=== PATIENT | male | born 1980 | race Caucasian/White ===

== ENCOUNTER 2025-04-05 09:08 | Emergency (ER) | payer MEDICAID, SELFPAY ==
[2025-04-05] VITALS (10 sets, daily range): BP systolic 127–174; BP diastolic 69–96; PULSE 76–115; RESP 14–23; TEMP 36.4; O2SAT 97–99; BMI 23.7
--- NOTE | 2025-04-05 09:22 | DI.CT.S_ITS ---
PROCEDURE: CT ANGIO HEAD AND NECK INDICATIONS: r/o stroke TECHNIQUE: After the administration of intravenous contrast, 1 mm thick sections acquired from the aortic arch through the [place]. 3-dimensional ihgtbhp-nfzfoczis-vyxmiovcnf (MIP) and/or volume rendering reformats were acquired of the central intracranial vasculature and neck separately. For radiation dose reduction, the following was used: automated exposure control, adjustment of mA and/or kV according to patient size. COMPARISON: [facility], CT, CT STROKE, 04/05/2025, 9:26. FINDINGS: Image quality: Diagnostic. Cerebral CT Angiogram: Internal carotid arteries: No acute findings. Intracranial ICA are patent with no significant stenosis. No occlusion. No aneurysm. Anterior cerebral arteries: Unremarkable. No significant stenosis. No occlusion. No aneurysm. Middle cerebral arteries: Unremarkable. No significant stenosis. No occlusion. No aneurysm. Posterior cerebral arteries: Unremarkable. No significant stenosis. No occlusion. No aneurysm. Basilar artery: Unremarkable. No significant stenosis. No occlusion. No aneurysm. Vertebral arteries: Unremarkable as visualized. Dural venous sinuses: Unremarkable given phase of enhancement. Other: Arterial phase appearance of the brain parenchyma is unremarkable. However, CT head without contrast raises the question of subtle hypodensity in the left anterior joanna. Neck CT Angiogram: Internal carotid arteries: Unremarkable. No significant stenosis. No dissection or occlusion. Common carotid arteries: Unremarkable. No significant stenosis. No dissection or occlusion. External carotid arteries: Unremarkable. No occlusion. Vertebral arteries: Unremarkable. No significant stenosis. No dissection or occlusion. Aortic Arch and Mediastinum: Partially visualized aortic arch unremarkable without evidence of aneurysm. Origins of the great vessels unremarkable. Other: Arterial phase soft tissues of the neck and chest are unremarkable. IMPRESSION: No significant intracranial arterial abnormality is seen. No significant abnormality is seen within the arteries of the neck. Associated head CT suggests possible subtle low-density in the left anterior joanna. Recommend brain MRI to exclude acute infarct. Any quantitative measurements of stenosis were performed using NASCET criteria. Dictated by: Gerber Horton M.D. on 04/05/2025 at 9:54 Approved by: Gerber Horton M.D. on 04/05/2025 at 9:57
--- NOTE | 2025-04-05 09:22 | DI.CT.S_ITS ---
PROCEDURE: CT STROKE INDICATIONS: Positive BE-FAST, Stroke symptoms TECHNIQUE: Noncontrast 4.5 mm thick angled axial sections acquired from the foramen magnum to the vertex, with coronal reformats. For radiation dose reduction, the following was used: automated exposure control, adjustment of mA and/or kV according to patient size. COMPARISON: None. FINDINGS: Image quality: Diagnostic. CSF spaces: Basal cisterns are patent. No extra-axial fluid collections. The ventricles are symmetric in size and shape. Brain: No intracranial bleeds or mass effect. There is question of subtle focal low-density in the left anterior joanna. Reference axial image 10 of series 4. There is intracranial internal carotid artery atherosclerosis. Skull and face: Calvarium and visualized facial bones appear intact, without suspicious lesions. Sinuses: Visualized sinuses and mastoids are clear. IMPRESSION: Question subtle focal low density in the left anterior joanna. Cannot exclude early infarct. Recommend brain MRI. Comment: Findings were discussed with Dr. Concepcion on 04/05/2025 at 0942 hours This study fulfills neurological imaging criteria for inclusion or exclusion of acute stroke therapies based on available published neurological guidelines. Dictated by: Gerber Horton M.D. on 04/05/2025 at 9:41 Approved by: Gerber Horton M.D. on 04/05/2025 at 9:45
--- NOTE | 2025-04-05 09:22 | DI.RAD.S_ITS ---
PROCEDURE: XR CHEST 1V INDICATIONS: Possible stroke TECHNIQUE: One view of the chest was acquired. COMPARISON: None. FINDINGS: Surgical changes and devices: None. Lungs and pleura: Lungs are clear. No pleural effusions or pneumothorax. Mediastinum: Mediastinal contours appear normal. Heart size is normal. Bones and chest wall: No suspicious bony lesions. Overlying soft tissues appear unremarkable. IMPRESSION: No acute cardiopulmonary pathology. Dictated by: Michelet Allen M.D. on 04/05/2025 at 10:16 Approved by: Michelet Allen M.D. on 04/05/2025 at 10:18
--- NOTE | 2025-04-05 09:25 | ED_ITS ---
HPI - Altered Mental Status General Chief Complaint: Neuro Symptoms/Deficit Stated Complaint: had a seizure Time Seen by Provider: 04/05/25 09:16 History of Present Illness HPI narrative: 44-year-old brought in by neighbor at 9:00 a.m. for confusion, slurred speech, left arm and leg extended and contracted for approx 3 mins this lasted per friend who was in the car with him. He has no recollection of this happening and does not know why he is here at this time. He is only complaining of mid back pain but otherwise no other complaints head to toe. He denies headache, dizziness, chest pain, shortness of breath, cough, fever, chills, body aches, rash, stiff neck, nausea, vomiting, diarrhea, abdominal pain. Other than what is stated 14 point review of system is negative. Related Data Allergies Allergy/AdvReac Type Severity Reaction Status Date / Time No Known Allergies Allergy Mild Verified 04/05/25 09:23 Review of Systems Review of Systems ROS Unobtainable: All systems reviewed & are unremarkable except as noted in HPI and below Exam Narrative Exam Narrative: GENERAL: [44] year old patient appears stated age. Well-developed patient, in mild distress. HEAD: Atraumatic. Normocephalic. EYES: Pupils equal round and reactive. Extraocular motions intact. No scleral icterus. No injection or drainage. ENT: Nose without bleeding, purulent drainage. Throat without erythema, tonsillar hypertrophy or exudate. Airway patent. NECK: Trachea midline. Non tender CARDIOVASCULAR: Regular rate and rhythm without murmurs, gallops, or rubs. RESPIRATORY: Clear to auscultation. Breath sounds equal bilaterally. No wheezes, rales, or rhonchi. GASTROINTESTINAL: Abdomen soft, non-tender, nondistended. EXTREMITIES: No edema or joint tenderness. BACK: Nontender without deformity or crepitance. No flank tenderness. NEURO: AOx3. GCS 15 nonfocal neuro exam and oriented x4 SKIN: No rash or erythema of visible areas Initial Vital Signs Initial Vital Signs: Vital Signs Temperature 97.6 F 04/05/25 09:15 Pulse Rate 115 H 04/05/25 09:15 Respiratory Rate 20 04/05/25 09:15 Blood Pressure 174/96 H 04/05/25 09:15 Pulse Oximetry 98 04/05/25 09:15 Oxygen Delivery Method Room Air 04/05/25 09:15 Scores GCS Y[place]esh coma scale eye opening: Spontaneous [place] coma scale verbal response: Orientated [place] coma scale motor response: Obey commands [place] coma scale total score: 15 NIH Stroke Scale Level of Conciousness: Alert, keenly responsive Ask month/age: Answers both questions correctly. Open/close eyes, close hand: Performs both tasks correctly Best gaze horizontal: Normal Visual goodwin: No visual loss Facial palsy: Normal symetrical movement Left arm drift: No drift for full 10 sec Right arm drift: No drift for full 10 sec Left leg drift: No drift for full 5 sec Right leg drift: No drift for full 5 sec Limb ataxia: Absent Sensory on face/arms/legs: Normal, no sensory loss Best language: No aphasia, normal Dysarthria: Normal Extinction or inattention: No abnormality Total NIH Stroke scale score: 0 Course Orders Ordered: ED Orders 04/05/25 09:[address] angio head and neck Stat XR chest 1V Stat EKG-12 Lead Stat 04/05/25 09:23 Complete Blood Count AUTO DIFF Stat Comprehensive Metabolic Panel Stat PTT Partial Thromboplastin Efren Stat Prothrombin Time INR Stat Troponin & CK Cardiac Panel Stat 04/05/25 10:01 MR head/brain wo con Stat 04/05/25 10:08 Urinalysis and Microscopic Stat Urine Drug Screen, Rapid Stat Ondansetron HCl (Ondansetron 4 Mg/2 Ml Inj) 4 mg IV NOW PRN PRN Reason: Nausea And Vomiting Ondansetron HCl (Ondansetron 4 Mg Odt) 4 mg PO NOW PRN PRN Reason: Nausea And Vomiting Discontinued Medications Aspirin (Aspirin 81 Mg Chew Tab) 324 mg PO NOW ONE Stop: 04/05/25 12:15 Vital Signs Vital signs: Vital Signs - 8 hr 04/05/25 09:15 04/05/25 09:39 04/05/25 10:00 Temperature 97.6 F Pulse Rate 115 H 96 H 88 Respiratory Rate 20 22 21 Blood Pressure 174/96 H Pulse Oximetry 98 Oxygen Delivery Method Room Air 04/05/25 11:08 04/05/25 11:10 04/05/25 11:10 Temperature Pulse Rate 76 77 Respiratory Rate 14 Blood Pressure 144/80 H Pulse Oximetry 98 99 Oxygen Delivery Method 04/05/25 11:12 04/05/25 11:12 04/05/25 11:30 Temperature Pulse Rate 82 Respiratory Rate 21 Blood Pressure 148/88 H 142/78 H Pulse Oximetry 99 Oxygen Delivery Method MDM - Altered Mental Status Lab Data 04/05/25 09:23 04/05/25 09:23 Labs: Lab Results 04/05/25 04/05/25 04/05/25 Range/Units 09:21 09:23 10:08 WBC 7.3 (4.5-11.0) X10^3/uL RBC 4.78 (4.5-5.9) X10^6/uL Hgb 14.4 (13.5-17.5) g/dL Hct 44.3 (41-53) % MCV 92.6 (80-100) fL MCH 30.1 (26-34) PG MCHC 32.5 (30-36) % RDW 14.0 (11.6-14.8) % Plt Count 228 (150-400) X10^3/uL Neut % (Auto) 69.1 (50-75) % Lymph % (Auto) 20.6 L (25-40) % [place] % (Auto) 8.6 (3-14) % Eos % (Auto) 1.0 L (2-4) % Baso % (Auto) 0.7 (0-2) % Neut # (Auto) 5000 (1262-8033) /uL Lymph # (Auto) 1500 (0047-0572) /uL [place] # (Auto) 600 (0-900) /uL Eos # (Auto) 100 (0-450) /uL Baso # (Auto) 0 (0-100) /uL PT 10.3 (9.4-12.5) SECONDS INR 0.9 (0.9-1.3) APTT 26 (25.1-36.5) SECONDS Sodium 134 L (137-145) mmol/L Potassium 3.5 (3.4-5.1) mmol/L Chloride 99 (98-107) mmol/L Carbon Dioxide 11 L (22-32) mmol/L BUN 8 L (9-20) mg/dL Creatinine 0.81 (0.66-1.25) mg/dL Estimated GFR > 60 (>60) mL/min BUN/Creatinine Ratio 9.9 (6-22) Glucose 208 H (70-99) mg/dL POC Whole Bld Glucose 214 H (70-99) mg/dL Calcium 9.1 (8.4-10.2) mg/dL Total Bilirubin 0.9 (0.2-1.3) mg/dL AST 217 H (17-59) IU/L ALT 115 H (<50) IU/L Alkaline Phosphatase 84 (38-126) U/L Total Creatine Kinase 89 (55-170) U/L Troponin I < 0.012 (0.01-0.034) ng/mL Total Protein 7.8 (6.3-8.2) g/dL Albumin 4.8 (3.5-5.0) g/dL Globulin 3.0 (1.7-4.1) g/dL Albumin/Globulin Ratio 1.6 (1.0-2.8) Urine Color Yellow Urine Appearance Clear Urine pH 6.0 (4.5-8.0) Ur Specific [place] 1.020 (1.000-1.035) Urine Protein 1+ H (Negative) Urine Glucose (UA) 1+ H (Negative) g/dL Urine Ketones 3+ H (NEGATIVE) Urine Occult Blood 1+ H (Negative) Urine Nitrate Negative (Negative) Urine Bilirubin Negative (NEGATIVE) Urine Urobilinogen 0.2 (0.2) E.U./dL Ur Leukocyte Esterase Negative (NEGATIVE) Urine RBC None seen (0-5/HPF) Urine WBC None seen (0-5/HPF) Ur Squamous Epith Cells None seen (0-5/HPF) Urine Bacteria None seen (None) Ur Culture Indicated? Cult not indicated Vol Urine Centrifuged 10ml (spun) U Opiates 300ng/mL cut Negative (Negative) Ur Oxycodone Screen Negative (Negative) Urine Methadone Screen Negative (Negative) Ur Barbiturates Screen Negative (Negative) U Tricyclic Antidepress Negative (Negative) Ur Phencyclidine Scrn Negative (Negative) Ur Amphetamines Screen Negative (Negative) U Methamphetamines Scrn Negative (Negative) Ur MDMA Scrn (Ecstasy) Negative (Negative) U Benzodiazepines Scrn Negative (Negative) Urine Cocaine Screen Negative (Negative) U Marijuana (THC) Screen Positive H (Negative) Urine Specific [place] Ur Creatinine 25 Range/Units 10:08 WBC (4.5-11.0) X10^3/uL RBC (4.5-5.9) X10^6/uL Hgb (13.5-17.5) g/dL Hct (41-53) % MCV (80-100) fL MCH (26-34) PG MCHC (30-36) % RDW (11.6-14.8) % Plt Count (150-400) X10^3/uL Neut % (Auto) (50-75) % Lymph % (Auto) (25-40) % [place] % (Auto) (3-14) % Eos % (Auto) (2-4) % Baso % (Auto) (0-2) % Neut # (Auto) (1308-3963) /uL Lymph # (Auto) (0064-0612) /uL [place] # (Auto) (0-900) /uL Eos # (Auto) (0-450) /uL Baso # (Auto) (0-100) /uL PT (9.4-12.5) SECONDS INR (0.9-1.3) APTT (25.1-36.5) SECONDS Sodium (137-145) mmol/L Potassium (3.4-5.1) mmol/L Chloride (98-107) mmol/L Carbon Dioxide (22-32) mmol/L BUN (9-20) mg/dL Creatinine (0.66-1.25) mg/dL Estimated GFR (>60) mL/min BUN/Creatinine Ratio (6-22) Glucose (70-99) mg/dL POC Whole Bld Glucose (70-99) mg/dL Calcium (8.4-10.2) mg/dL Total Bilirubin (0.2-1.3) mg/dL AST (17-59) IU/L ALT (<50) IU/L Alkaline Phosphatase (38-126) U/L Total Creatine Kinase (55-170) U/L Troponin I (0.01-0.034) ng/mL Total Protein (6.3-8.2) g/dL Albumin (3.5-5.0) g/dL Globulin (1.7-4.1) g/dL Albumin/Globulin Ratio (1.0-2.8) Urine Color Urine Appearance Urine pH Not Reportable (4.5-8.0) Ur Specific [place] (1.000-1.035) Urine Protein (Negative) Urine Glucose (UA) (Negative) g/dL Urine Ketones (NEGATIVE) Urine Occult Blood (Negative) Urine Nitrate (Negative) Urine Bilirubin (NEGATIVE) Urine Urobilinogen (0.2) E.U./dL Ur Leukocyte Esterase (NEGATIVE) Urine RBC (0-5/HPF) Urine WBC (0-5/HPF) Ur Squamous Epith Cells (0-5/HPF) Urine Bacteria (None) Ur Culture Indicated? Vol Urine Centrifuged U Opiates 300ng/mL cut (Negative) Ur Oxycodone Screen (Negative) Urine Methadone Screen (Negative) Ur Barbiturates Screen (Negative) U Tricyclic Antidepress (Negative) Ur Phencyclidine Scrn (Negative) Ur Amphetamines Screen (Negative) U Methamphetamines Scrn (Negative) Ur MDMA Scrn (Ecstasy) (Negative) U Benzodiazepines Scrn (Negative) Urine Cocaine Screen (Negative) U Marijuana (THC) Screen (Negative) Urine Specific [place] Not Reportable Ur Creatinine Not Reportable Point of Care Testing Glucose POC [address] scan - head: Radiologist's Impression: [address] [address] [address] Scan Report Signed Patient: Denilson Ko MR#: [id number] : 1980 Acct:[id number] Age/Sex: 44 / M Date of Service: 04/05/25 Loc: ED Accession Number: [id number] Procedure: CT angio head and neck Ordering Provider: Bernabe Concepcion D.O. PROCEDURE: CT ANGIO HEAD AND NECK INDICATIONS: r/o stroke TECHNIQUE: After the administration of intravenous contrast, 1 mm thick sections acquired from the aortic arch through the [place] of [place]. 3-dimensional baifeyp-bybfgjxay-czdnlbfmdk (MIP) and/or volume rendering reformats were acquired of the central intracranial vasculature and neck separately. For radiation dose reduction, the following was used: automated exposure control, adjustment of mA and/or kV according to patient size. COMPARISON: [facility], CT, CT STROKE, 04/05/2025, 9:26. FINDINGS: Image quality: Diagnostic. Cerebral CT Angiogram: Internal carotid arteries: No acute findings. Intracranial ICA are patent with no significant stenosis. No occlusion. No aneurysm. Anterior cerebral arteries: Unremarkable. No significant stenosis. No occlusion. No aneurysm. Middle cerebral arteries: Unremarkable. No significant stenosis. No occlusion. No aneurysm. Posterior cerebral arteries: Unremarkable. No significant stenosis. No occlusion. No aneurysm. Basilar artery: Unremarkable. No significant stenosis. No occlusion. No aneurysm. Vertebral arteries: Unremarkable as visualized. Dural venous sinuses: Unremarkable given phase of enhancement. Other: Arterial phase appearance of the brain parenchyma is unremarkable. However, CT head without contrast raises the question of subtle hypodensity in the left anterior joanna. Neck CT Angiogram: Internal carotid arteries: Unremarkable. No significant stenosis. No dissection or occlusion. Common carotid arteries: Unremarkable. No significant stenosis. No dissection or occlusion. External carotid arteries: Unremarkable. No occlusion. Vertebral arteries: Unremarkable. No significant stenosis. No dissection or occlusion. Aortic Arch and Mediastinum: Partially visualized aortic arch unremarkable without evidence of aneurysm. Origins of the great vessels unremarkable. Other: Arterial phase soft tissues of the neck and chest are unremarkable. IMPRESSION: No significant intracranial arterial abnormality is seen. No significant abnormality is seen within the arteries of the neck. Associated head CT suggests possible subtle low-density in the left anterior joanna. Recommend brain MRI to exclude acute infarct. Any quantitative measurements of stenosis were performed [place] [address] CT Scan Report Signed Patient: Denilson Ko MR#: [id number] : 1980 Acct:[id number] Age/Sex: 44 / M Date of Service: 04/05/25 Loc: ED Accession Number: [id number] Procedure: CT Stroke Ordering Provider: Bernabe Concepcion D.O. PROCEDURE: CT STROKE INDICATIONS: Positive BE-FAST, Stroke symptoms TECHNIQUE: Noncontrast 4.5 mm thick angled axial sections acquired from the foramen magnum to the vertex, with coronal reformats. For radiation dose reduction, the following was used: automated exposure control, adjustment of mA and/or kV according to patient size. COMPARISON: None. FINDINGS: Image quality: Diagnostic. CSF spaces: Basal cisterns are patent. No extra-axial fluid collections. The ventricles are symmetric in size and shape. Brain: No intracranial bleeds or mass effect. There is question of subtle focal low-density in the left anterior joanna. Reference axial image 10 of series 4. There is intracranial internal carotid artery atherosclerosis. Skull and face: Calvarium and visualized facial bones appear intact, without suspicious lesions. Sinuses: Visualized sinuses and mastoids are clear. IMPRESSION: Question subtle focal low density in the left anterior joanna. Cannot exclude early infarct. Recommend brain MRI. Comment: Findings were discussed with Dr. Concepcion on 04/05/2025 at 0942 hours This study fulfills neurological imaging criteria for inclusion or exclusion of acute stroke therapies based on available published neurological guidelines. Extremity x-ray #1: Radiologist's Impression: [address] [address] Magnetic Resonance Report Signed Patient: Denilson Ko MR#: [id number] : 1980 Acct:[id number] Age/Sex: 44 / M Date of Service: 04/05/25 Loc: ED Accession Number: [id number] Procedure: MR head/brain wo con Ordering Provider: Bernabe Concepcion D.O. PROCEDURE: MR HEAD/BRAIN WO CON INDICATIONS: post sz TECHNIQUE: Noncontrast axial T1 spin echo, axial T2 fast spin echo, sagittal and axial FLAIR, coronal T2 fast spin echo, axial gradient echo, axial diffusion and ADC through the brain. COMPARISON: [facility], CT, CT ANGIO HEAD AND NECK, 04/05/2025, 9:26. [facility], CT, CT STROKE, 04/05/2025, 9:26. FINDINGS: Image quality: Excellent. CSF Spaces: Basal cisterns are patent. No extra-axial fluid collections. Ventricles are normal in size and shape. Brain: No intracranial masses or hemorrhage. Moon/white matter interface is normal. Brainstem appears normal. Diffusion-weighted images demonstrate no acute infarct. No chronic ischemic insults. Normal intravascular flow voids are present. Skull and face: Calvarium has normal marrow signal. Orbits appear normal. Sinuses: Mild mucosal thickening and retention cyst/mucocele in left maxillary sinus is seen. Bilateral mastoid air air cells are well aerated. IMPRESSION: 1. No acute infarction. No intracranial bleed, midline shift or mass effect. 2. Mild chronic appearing left maxillary sinusitis. ECG Data Interpretation: NSR HR 89 OK [address]-t wave change No previous EKG to compare MDM Narrative Medical decision making narrative: All lab work, vital signs, nurse triage note, medication list, previous ER visits, and all imaging studies reviewed. CT head and CT angio head and neck both showed questionable subtle focal low density left anterior joanna can not exclude early infarct. Brain MRI showed no acute infarction intracranial bleed midline shift or mass effect. Mild chronic appearing left maxillary sinusitis. NIH stroke scale of 0. GCS 15 nonfocal neuro exam. Sodium 134 BUN 8 CO2 11 BUN 8 glucose 208 AST 217 ALT 115 troponin normal. UDS positive for marijuana. Differential diagnosis TIA CVA seizure hypo hyperglycemia substance abuse aneurysm hemorrhage. Patient was offered inpatient admission but refused due to financial concern. Patient will be leaving Against Medical Advice despite discussing and disability as complications of leaving against medical advice but he was of sound mind and judgment and still wanted to leave. Case discussed with [facility] neurology who recommended asa/plavix first 21 days and then asa 81mg daily. Discharge Plan Departure Patient Disposition: Home Clinical Impression: Left against medical advice, Transient cerebral ischemia Instructions: DI for Transient Ischemic Attack Activity Restrictions/Additional Instructions: Return with new or worsening symptoms. Please take aspirin 325 mg daily for the first 21 days and then 81mg daily afterwards. Please follow up with your PCP in [facility] this week. Stand Alone Forms: Patient Portal/API
[2025-04-05 09:33] LABS: Add Manual Diff / Slide Review NO; Hematocrit 44.3 % (41-53); Hemoglobin 14.4 g/dL (13.5-17.5); Lymphocytes Absolute Auto 1500 /uL (1100-4500); Mean Corpuscular HGB Conc 32.5 % (30-36); Mean Corpuscular Hemoglobin 30.1 PG (26-34); Mean Corpuscular Volume 92.6 fL (80-100); Platelet Count 228 X10^3/uL (150-400)
[2025-04-05 09:37] LABS: INR 0.9 (0.9-1.3); Prothrombin Time 10.3 SECONDS (9.4-12.5)
[2025-04-05 09:40] LABS: PTT Partial Thromboplastin Tim 26 SECONDS (25.1-36.5)
[2025-04-05 09:43] LABS: Alanine Aminotransferase 115 IU/L (<50); Albumin 4.8 g/dL (3.5-5.0); Albumin Globulin Ratio 1.6 (1.0-2.8); Alkaline Phosphatase 84 U/L (38-126); Blood Urea Nitrogen 8 mg/dL (9-20); Calcium 9.1 mg/dL (8.4-10.2); Carbon Dioxide 11 mmol/L (22-32); Chloride 99 mmol/L (98-107); Creatine Kinase 89 U/L (55-170); Estimated Glomerular Filt Rate > 60 mL/min (>60); Globulin 3.0 g/dL (1.7-4.1); Glucose 208 mg/dL (70-99); HEMOLYSIS < 15 (0-50); Potassium 3.5 mmol/L (3.4-5.1); Sodium 134 mmol/L (137-145); Total Protein 7.8 g/dL (6.3-8.2)
--- NOTE | 2025-04-05 09:44 | EKG_ITS ---
[address] [address] Test Date: 2025-04-05 Pat Name: Denilson Ko Department: Room: Gender: Male Client Application Support Specialist: MEMO : 1980 Requested By: Order Number: [id number] Reading MD: Bernabe Akbar MD Measurements Intervals [place] Rate: 89 P: 49 [place]: 168 QRS: 58 QRSD: 106 T: 47 QT: 376 QTc: 457 Interpretive Statements Normal sinus rhythm Electronically Signed On 04-05-2025 11:47:31 PDT by Bernabe Akbar MD
--- NOTE | 2025-04-05 09:44 | PC.NURSE ---
Sx resolving. Pt states that he does not remember what happened, but able to answer all questions appropriately. Hx of crohn's disease.
[2025-04-05 09:54] LABS: Troponin I < 0.012 ng/mL (0.01-0.034)
--- NOTE | 2025-04-05 10:01 | DI.MRI.S_ITS ---
PROCEDURE: MR HEAD/BRAIN WO CON INDICATIONS: post sz TECHNIQUE: Noncontrast axial T1 spin echo, axial T2 fast spin echo, sagittal and axial FLAIR, coronal T2 fast spin echo, axial gradient echo, axial diffusion and ADC through the brain. COMPARISON: [facility], CT, CT ANGIO HEAD AND NECK, 04/05/2025, 9:26. [facility], CT, CT STROKE, 04/05/2025, 9:26. FINDINGS: Image quality: Excellent. CSF Spaces: Basal cisterns are patent. No extra-axial fluid collections. Ventricles are normal in size and shape. Brain: No intracranial masses or hemorrhage. Moon/white matter interface is normal. Brainstem appears normal. Diffusion-weighted images demonstrate no acute infarct. No chronic ischemic insults. Normal intravascular flow voids are present. Skull and face: Calvarium has normal marrow signal. Orbits appear normal. Sinuses: Mild mucosal thickening and retention cyst/mucocele in left maxillary sinus is seen. Bilateral mastoid air air cells are well aerated. IMPRESSION: 1. No acute infarction. No intracranial bleed, midline shift or mass effect. 2. Mild chronic appearing left maxillary sinusitis. Dictated by: Michelet Allen M.D. on 04/05/2025 at 11:15 Approved by: Michelet Allen M.D. on 04/05/2025 at 11:16
[2025-04-05 10:16] LABS: Appearance Urine UA CLEAR; Bilirubin Urine UA NEGATIVE (NEGATIVE); Color Urine UA YELLOW; Glucose Urine UA 1+ g/dL (Negative); Ketones Urine UA 3+ (NEGATIVE); Leukocyte Esterase Urine UA NEGATIVE (NEGATIVE); Nitrite Urine UA NEGATIVE (Negative); Occult Blood Urine UA 1+ (Negative); Protein Urine UA 1+ (Negative); Specific Gravity Urine UA 1.020 (1.000-1.035); Urobilinogen Urine UA 0.2 E.U./dL (0.2); pH Urine UA 6.0 (4.5-8.0)
[2025-04-05 10:19] LABS: Culture Indicated Urine Cult Not Indicated; UR Morphine/Opiate cutoff 300 Negative (Negative); Urine MDMA Negative (Negative); Urine Methamphetamines Negative (Negative); Urine Tetrahydrocannabinol Positive (Negative); Urine Tricyclic Antidepressant Negative (Negative)
[2025-04-05] MEDS: ASPIRIN 81 MG CHEW TAB 324 MG PO (12:27)
[2025-04-05] MEDS: CLOPIDOGREL 75 MG TABLET 300 MG PO (12:53)
--- NOTE | 2025-04-05 12:58 | PC.NURSE ---
Patient reports that he takes a quarter of Fever, a gas station boner pill for fun almost daily for past 2 years. Last took part of one last night. Also reports has taken Hunter another similar type pill from [place]. Last took that a couple years ago. Provider Jamey made aware.
--- NOTE | 2025-04-05 13:19 | PC.NURSE ---
Patient ambulates up to bathroom on his own.
== END 2025-04-05 13:31 | disposition home or self-care (01) ==
PROVIDERS: Emergency Provider Family Medicine
DX: G45.9 Transient cerebral ischemic attack, unspecified (principal); F12.90 Cannabis use, unspecified, uncomplicated; J32.0 Chronic maxillary sinusitis; R29.700 NIHSS score 0; R40.2412 Glasgow coma scale score 13-15, at arrival to emergency department
CPT/HCPCS: 36415; 70450; 70496; 70498; 70551; 71045; 80053; 80305; 81001; 82550; 82962; 84484; 85025; 85610; 85730; 93005; 99284; Q9967